=== PATIENT | female | born 1940 ===

== ENCOUNTER 2023-10-25 10:45 | Emergency (ER) | payer MEDICARE, SELFPAY ==
--- NOTE | ~2023-10-25 | CT_ITS ---
CT HEAD WITHOUT IV CONTRAST CT CERVICAL SPINE WITHOUT IV CONTRAST INDICATION: Fall. COMPARISON: None available. TECHNIQUE: Multidetector CT acquisitions of the head and cervical spine were obtained without IV contrast. Multiplanar reformats were acquired and utilized for image interpretation. This CT examination was performed using dose optimization techniques as appropriate, variously including the following: *Automated exposure control *Adjustment of mA and/or kV according to patient size (this includes techniques or standardized protocols for targeted exams where dose is matched to indication/reason for exam; i.e. 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 There is no intracranial hemorrhage, hydrocephalus, extra-axial surface collection, midline shift, or other herniation pattern. Piedra to white matter differentiation is diffusely maintained without evidence of an evolved acute territorial infarct. The basilar cisterns are preserved. No significant soft tissue abnormality. No acute osseous abnormality. Small fluid levels within the maxillary sinuses bilaterally. The remaining paranasal sinuses and the mastoid air cells are clear. CERVICAL SPINE: Nondiagnostic cervical spine CT due to motion artifact. This CT study cannot exclude cervical spine fractures given the degree of motion artifact. Consider a repeat study with sedation as clinically indicated if there is high clinical concern for acute cervical spine injury. CT/CT head/brain wo IV con IMPRESSION: - No acute intracranial abnormality. 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 Small fluid levels within the maxillary sinuses bilaterally. - Nondiagnostic cervical spine CT due to motion artifact. This CT study cannot exclude cervical spine fractures given the degree of motion artifact. Consider a repeat study with sedation as clinically indicated if there is high clinical concern for acute cervical spine injury.
--- NOTE | ~2023-10-25 | CT_ITS ---
EXAMINATION: CT CERVICAL SPINE WITHOUT CONTRAST CLINICAL INFORMATION: Fall. COMPARISON: None available. TECHNIQUE: 3 mm axial and reformatted 3 mm thin sagittal and coronal images of cervical spine were obtained without contrast. This CT examination was performed using dose optimization techniques as appropriate, variously including the following: *Automated exposure control *Adjustment of mA and/or kV according to patient size (this includes techniques or standardized protocols for targeted exams where dose is matched to indication/reason for exam; i.e. extremities or head) *Use of iterative reconstruction technique DLP: 234 mGy-cm FINDINGS: On sagittal reconstructed images there is normal cervical lordosis. The vertebral heights and alignment is normal. There is loss of C3-C4, C5-C6 and C6-C7 disc heights. There is mild spurring at the C1-C2 alignment. The craniovertebral junction is normal. No visible acute fracture, dislocation or subluxation seen. The prevertebral and paravertebral soft tissues are normal. The airway is widely patent. The lung apices are clear. Mild mucoperiosteal thickening right maxillary sinus is noted. Bilateral TM joints and visualized mandible is unremarkable. CT/CT cervical spine wo IV con IMPRESSION: No visible acute fracture, dislocation or subluxation seen in cervical spine. Degenerative disc changes C3-C4, C5-C6 and C6-C7 disc levels. No aggressive lytic or sclerotic process seen. Fleischner guidelines were followed.
--- NOTE | ~2023-10-25 | CT_ITS ---
CT HEAD WITHOUT IV CONTRAST CT CERVICAL SPINE WITHOUT IV CONTRAST INDICATION: Fall. COMPARISON: None available. TECHNIQUE: Multidetector CT acquisitions of the head and cervical spine were obtained without IV contrast. Multiplanar reformats were acquired and utilized for image interpretation. This CT examination was performed using dose optimization techniques as appropriate, variously including the following: *Automated exposure control *Adjustment of mA and/or kV according to patient size (this includes techniques or standardized protocols for targeted exams where dose is matched to indication/reason for exam; i.e. 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 There is no intracranial hemorrhage, hydrocephalus, extra-axial surface collection, midline shift, or other herniation pattern. [place]iedra to white matter differentiation is diffusely maintained without evidence of an evolved acute territorial infarct. The basilar cisterns are preserved. No significant soft tissue abnormality. No acute osseous abnormality. Small fluid levels within the maxillary sinuses bilaterally. The remaining paranasal sinuses and the mastoid air cells are clear. CERVICAL SPINE: Nondiagnostic cervical spine CT due to motion artifact. This CT study cannot exclude cervical spine fractures given the degree of motion artifact. Consider a repeat study with sedation as clinically indicated if there is high clinical concern for acute cervical spine injury. CT/CT cervical spine wo IV con IMPRESSION: - No acute intracranial abnormality. 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 Small fluid levels within the maxillary sinuses bilaterally. - Nondiagnostic cervical spine CT due to motion artifact. This CT study cannot exclude cervical spine fractures given the degree of motion artifact. Consider a repeat study with sedation as clinically indicated if there is high clinical concern for acute cervical spine injury.
--- NOTE | ~2023-10-25 | XR_ITS ---
EXAMINATION: XR CHEST CLINICAL INFORMATION: Fall COMPARISON: None available. TECHNIQUE: Frontal view of the chest was obtained. FINDINGS: Heart and mediastinum within normal limits. Low lung volumes with mild vessel crowding and mild atelectasis. Demineralization and degenerative changes. Calcification overlying the lateral left humeral head. No acute bony pathology. XR/XR chest 1V IMPRESSION: Low lung volumes with mild atelectasis.
--- NOTE | ~2023-10-25 | XR_ITS ---
EXAMINATION: XR PELVIS CLINICAL INFORMATION: Fall. COMPARISON: None available. TECHNIQUE: AP view of the pelvis. FINDINGS: No acute, displaced fracture. Healed right superior and inferior pubic rami fractures. Right femoral neck orthopedic screws across a healed right femoral neck fracture. No evidence of hardware complication. Moderate bilateral hip joint space narrowing with marginal osteophytes. No osseous erosion. No evidence of avascular necrosis. Phleboliths within the pelvis. XR/XR pelvis 1-2V IMPRESSION: 1. No acute fracture or dislocation. 2. Healed right superior and inferior pubic rami fractures. Right femoral neck orthopedic screws without evidence of hardware complication. 3. Moderate bilateral hip osteoarthritis.
[2023-10-25 11:15] VITALS: BP 108/80; BP 126/67; PULSE 72; PULSE 76; RESP 18; TEMP 37.2; O2SAT 95; O2SAT 98; BMI 19.2
--- NOTE | 2023-10-25 11:30 | ECG_ITS ---
Test Reason : fall Blood Pressure : / mmHG Vent. Rate : 069 BPM Atrial Rate : 069 BPM P-R Int : 154 ms QRS Dur : 086 ms QT Int : 420 ms P-R-T Axes : 039 042 053 degrees QTc Int : 450 ms Normal sinus rhythm Normal ECG No previous ECGs available Referred By: Aliza Ac Electronically Signed By:Cristofer Kwno
--- NOTE | 2023-10-25 11:36 | ED.FALL ---
HPI - Fall General Chief Complaint: Fall Stated Complaint: UNWIT FALL,?LOC?HS,-COLLAR,-THINNERS,INC CONFUSION Time Seen by Provider: 10/25/23 11:10 History of Present Illness HPI Narrative: Patient is an 83-year-old female from a [facility] facility. Patient was in a wheelchair subsequently found lying on her side unsure what exactly happened. Patient has no complaints. She has not on any blood thinners. Related Data Home Medications Medication Instructions Recorded Confirmed amantadine HCl 100 mg capsule 100 mg PO BID 10/25/23 10/25/23 benztropine 0.5 mg tablet 0.5 mg PO BID 10/25/23 10/25/23 divalproex 250 mg tablet,delayed 250 mg PO DAILY 10/25/23 10/25/23 release (Depakote) divalproex 250 mg tablet,delayed 500 mg PO BEDTIME 10/25/23 10/25/23 release (Depakote) divalproex 250 mg tablet,delayed 500 mg PO BID 10/25/23 10/25/23 release (Depakote) fluoxetine 20 mg capsule (Prozac) 20 mg PO DAILY 10/25/23 10/25/23 levothyroxine 75 mcg tablet 75 mcg PO DAILY 10/25/23 10/25/23 (Synthroid) olanzapine 2.5 mg tablet 2.5 mg PO BEDTIME 10/25/23 10/25/23 olanzapine 2.5 mg tablet 2.5 mg PO DAILY 10/25/23 10/25/23 trazodone 50 mg tablet 50 mg PO BEDTIME PRN Insomnia 10/25/23 10/25/23 Allergies Allergy/AdvReac Type Severity Reaction Status Date / Time No Known Allergies Allergy Verified 10/25/23 11:35 Review of Systems Review of Systems: Elderly female fall unable to obtain review of systems secondary to patient's condition PMFSH Past Medical History Attestation statement: The following information was validated with the patient. Social History Social History Smoked in Last 30 Days: No Use of substances other than those prescribed or required for medical reasons: No Advance Directives: No Advance Directives Information Provided: No Physical Exam Vital Signs: Vital Signs: Last Vital Signs Temp 98.9 F 10/25/23 11:15 Pulse 87 10/25/23 14:51 Resp 16 10/25/23 14:51 BP 132/66 10/25/23 14:51 Pulse Ox 97 10/25/23 14:51 O2 Del Method Room Air 10/25/23 14:51 BMI result Body Mass Index 19.2 Appearance: Alert. Oriented X3. No acute distress. Eyes: Pupils equal, round and reactive to light. ENT: Pharynx normal. Neck: Normal inspection. Neck supple. No lymph nodes noted. No crepitus CVS: Normal heart rate and rhythm. Pulses normal. Normal S1 and S2 Respiratory: No respiratory distress. Breath sounds normal. No Wheezing. No rales Abdomen: Soft and nontender. No rigidity. No distention. good BS x4 Skin: Skin warm and dry. Normal skin color. Normal skin turgor. Extremities: No lower extremity edema. Neurovascular intact to all extremities. No Lacerations. No Rash Neuro: Oriented X 3. No motor deficit. No sensory deficit. Moving all extermities. No slurred speech Medications Administered Discontinued Medications Generic Name Dose Route Start Last Admin Trade Name Freq PRN Reason Stop Dose Admin Midazolam HCl 1 mg 10/25/23 14:45 10/25/23 14:50 Midazolam Hcl/Pf 2 Mg/2 Ml Vial IM 10/25/23 14:46 1 mg ONCE ONE Administration Medical Decision Making Medical Decision Making [facility] Narrative: Patient is status post unwitnessed fall from a wheelchair at a [facility] facility. CT scan of the head was done. It was grossly negative for any acute evidence of bleeding. Patient's hemoglobin is normal no evidence for anemia. Urine was obtained there is no evidence for infection. An EKG was done and showed a sinus pattern heart rate is 60 AR QRS QTC within normal limits is no acute ST segment elevation. Patient's x-ray of the chest and x-ray of the pelvis was done. The both grossly negative for any acute evidence of fracture. Moving all extremities well. Had a discussion with patient's son [id number] Cb. Feel comfortable with discharge at the C-spine CT is negative. Patient's C-spine CT came back grossly negative. I reviewed radiology's report. Will discharge patient home. In stable condition Differential Diagnosis Differential Diagnoses: The differential diagnosis associated with the presentation includes Fracture, infection, Admission/Observation Consideration of admission/observation: Escalation of care including admission/observation considered Lab Data MDM Lab Attestation statement: I reviewed the patient's lab results. 10/25/23 12:02 10/25/23 12:36 Labs: Lab Results 10/25/23 10/25/23 10/25/23 Range/Units 12:02 12:36 12:37 WBC 9.5 (4.8-10.8) X10*3/uL RBC 3.61 L (4.20-5.50) X10*6/uL Hgb 12.1 (12.0-16.0) g/dl Hct 35.7 L (37.0-47.0) % MCV 98.9 H (80.0-98.0) fL MCH 33.5 H (27.0-33.0) pg MCHC 33.9 (31.0-35.0) g/dl RDW 14.8 (11.0-16.0) % Plt Count 148 L (160-400) X10*3/uL MPV 11.1 (9.4-12.3) fL Immature Gran % (Auto) 1.7 H (0.0-0.4) % Neut % (Auto) 76.8 H (45-73) % Lymph % (Auto) 14.1 L (20-40) % Mccreary % (Auto) 6.7 (2-11) % Eos % (Auto) 0.1 (0-4) % Baso % (Auto) 0.6 (0-2) % Lymph # (Auto) 1.3 (1.2-4.9) X10*3/uL Mccreary # (Auto) 0.6 (0.1-1.2) X10*3/uL Eos # (Auto) 0.0 (0.0-0.4) X10*3/uL Baso # (Auto) 0.1 (0.0-0.2) X10*3/uL Abs Immat Gran (auto) 0.16 H (0.00-0.03) X10*3/uL Absolute Neuts (auto) 7.3 (2.0-8.3) x10*3/uL Absolute Nucleated RBC 0.000 (0.0-0.012) X10*3/uL Nucleated RBC % (auto) 0.0 (0.0-0.2) /100WBC Hold Purple Top Cancelled SEE NOTE Sodium 134 L (135-145) mmol/L Potassium 4.2 (3.3-5.1) mmol/L Chloride 100 (96-108) mmol/L Carbon Dioxide 28 (22-29) mmol/L Anion Gap 10 L (12-20) BUN 18 H (9-16) mg/dL Creatinine 0.73 (0.5-1.4) mg/dL Estim Creat Clear Calc 48.8 Estimated GFR > 60 Random Glucose 78 (60-115) mg/dL Calcium 8.4 (8.4-10.2) mg/dL Urine Color Urine Appearance Urine pH (5.0-9.0) Ur Specific [place] (1.005-1.025) Urine Protein (Neg-Trace) mg/dL Urine Glucose (UA) (Negative) mg/dL Urine Ketones (Negative) mg/dL Urine Blood (Negative) Urine Nitrite (Negative) Ur Leukocyte Esterase (Negative) Urine RBC (0-2) /HPF Urine WBC (0-5) /HPF Ur Squamous Epith Cells (0-2) /HPF Urine Bacteria (None Seen) Hyaline Casts (0-2) /LPF 10/25/23 Range/Units 14:38 WBC (4.8-10.8) X10*3/uL RBC (4.20-5.50) X10*6/uL Hgb (12.0-16.0) g/dl Hct (37.0-47.0) % MCV (80.0-98.0) fL MCH (27.0-33.0) pg MCHC (31.0-35.0) g/dl RDW (11.0-16.0) % Plt Count (160-400) X10*3/uL MPV (9.4-12.3) fL Immature Gran % (Auto) (0.0-0.4) % Neut % (Auto) (45-73) % Lymph % (Auto) (20-40) % [place] % (Auto) (2-11) % Eos % (Auto) (0-4) % Baso % (Auto) (0-2) % Lymph # (Auto) (1.2-4.9) X10*3/uL [place] # (Auto) (0.1-1.2) X10*3/uL Eos # (Auto) (0.0-0.4) X10*3/uL Baso # (Auto) (0.0-0.2) X10*3/uL Abs Immat Gran (auto) (0.00-0.03) X10*3/uL Absolute Neuts (auto) (2.0-8.3) x10*3/uL Absolute Nucleated RBC (0.0-0.012) X10*3/uL Nucleated RBC % (auto) (0.0-0.2) /100WBC Hold Purple Top Sodium (135-145) mmol/L Potassium (3.3-5.1) mmol/L Chloride (96-108) mmol/L Carbon Dioxide (22-29) mmol/L Anion Gap (12-20) BUN (9-16) mg/dL Creatinine (0.5-1.4) mg/dL Estim Creat Clear Calc Estimated GFR Random Glucose (60-115) mg/dL Calcium (8.4-10.2) mg/dL Urine Color Yellow Urine Appearance Clear Urine pH 7.5 (5.0-9.0) Ur Specific [place] 1.015 (1.005-1.025) Urine Protein Negative (Neg-Trace) mg/dL Urine Glucose (UA) Negative (Negative) mg/dL Urine Ketones Trace (Negative) mg/dL Urine Blood Negative (Negative) Urine Nitrite Negative (Negative) Ur Leukocyte Esterase Trace H (Negative) Urine RBC 0-2 (0-2) /HPF Urine WBC 0-5 (0-5) /HPF Ur Squamous Epith Cells 0-2 (0-2) /HPF Urine Bacteria None Seen (None Seen) Hyaline Casts 0-2 (0-2) /LPF Independent Interpretation I performed an independent interpretation of an: EKG (Sinus heart rate is 60 AR QRS QTC within normal limits is no acute ST segment elevation noted.), Plain X-Ray (Chest x-ray and pelvis x-ray were both grossly negative for any acute evidence of fracture.) and CT Scan (Review CT scan of the head which was grossly negative for bleed or fracture) Radiology Impression Discussion of test interpretation with radiology: I have reviewed the radiologist's reading. Independent Historian Clinical information obtained from an independent historian. History obtained from or confirmed by: EMS long-term staff Discharge Plan Discharge Clinical Impression: Head injury, Fall Patient Disposition: Home, Self-Care Instructions: Fall Prevention for Older Adults (ED), Head Injury (ED), Fall Prevention (ED) Prescriptions: No Action benztropine 0.5 mg Tablet 0.5 mg PO BID fluoxetine [Prozac] 20 mg Capsule 20 mg PO DAILY divalproex [Depakote] 250 mg tablet,delayed release (DR/EC) 500 mg PO BEDTIME olanzapine 2.5 mg Tablet 2.5 mg PO BEDTIME olanzapine 2.5 mg Tablet 2.5 mg PO DAILY divalproex [Depakote] 250 mg tablet,delayed release (DR/EC) 250 mg PO DAILY trazodone 50 mg tablet 50 mg PO BEDTIME PRN (Reason: Insomnia) divalproex [Depakote] 250 mg tablet,delayed release (DR/EC) 500 mg PO BID amantadine HCl 100 mg Capsule 100 mg PO BID levothyroxine [Synthroid] 75 mcg tablet 75 mcg PO DAILY Referrals: Physician,Unknown J [Primary Care Provider] - 10/27/23
--- NOTE | 2023-10-25 12:02 | PC.NURSE ---
labs obtained/sent to lab at this time.
[2023-10-25 12:09] LABS: MANUAL DIFF FLAG NO
[2023-10-25 12:17] LABS: Basophils Absolute Auto 0.1 X10*3/uL (0.0-0.2); Basophils Percent Auto 0.6 % (0-2); Eosinophils Percent Auto 0.1 % (0-4); Hematocrit 35.7 % (37.0-47.0); Hemoglobin 12.1 g/dl (12.0-16.0); Imm Gran Abs Auto 0.16 X10*3/uL (0.00-0.03); Imm Gran Pct Auto 1.7 % (0.0-0.4); Lymphocytes Absolute Auto 1.3 X10*3/uL (1.2-4.9); Lymphocytes Percent Auto 14.1 % (20-40); Mean Corpuscular HGB Conc 33.9 g/dl (31.0-35.0); Mean Corpuscular Hemoglobin 33.5 pg (27.0-33.0); Mean Corpuscular Volume 98.9 fL (80.0-98.0); Mean Platelet Volume 11.1 fL (9.4-12.3); Monocytes Absolute Auto 0.6 X10*3/uL (0.1-1.2); Monocytes Percent Auto 6.7 % (2-11); Neutrophils Absolute Auto 7.3 x10*3/uL (2.0-8.3); Neutrophils Percent Auto 76.8 % (45-73); Platelet Count 148 X10*3/uL (160-400); Red Blood Count 3.61 X10*6/uL (4.20-5.50); Red Cell Distribution Width 14.8 % (11.0-16.0); White Blood Count 9.5 X10*3/uL (4.8-10.8)
[2023-10-25 13:02] LABS: Anion Gap 10 (12-20)
[2023-10-25 13:04] LABS: Blood Urea Nitrogen 18 mg/dL (9-16); Calcium 8.4 mg/dL (8.4-10.2); Carbon Dioxide 28 mmol/L (22-29); Chloride 100 mmol/L (96-108); Creatinine Clr Calc Pharmacy 48.8; Estimated Glomerular Filt Rate > 60; Glucose Random 78 mg/dL (60-115); Potassium 4.2 mmol/L (3.3-5.1); Sodium 134 mmol/L (135-145)
--- NOTE | 2023-10-25 13:49 | PC.NURSE ---
Drew junior java developer from [facility] ([phone]) in [place] called about status update on pt.
[2023-10-25 14:48] LABS: Appearance Urine Clear; Color Urine Yellow; Glucose Urine UA Negative (Negative); Leukocyte Esterase Urine Trace (Negative); Nitrite Urine Negative (Negative); PH 7.5 (5.0-9.0); Specific Gravity - Urine 1.015 (1.005-1.025); UMIC TRIGGER UACC YES; Urine Blood Negative (Negative); Urine Ketones Trace mg/dL (Negative); Urine Protein Negative (Neg-Trace)
[2023-10-25 14:50] LABS: Bacteria Urine None Seen (None Seen); Hyaline Casts Urine 0-2 /LPF (0-2); RBC Urine 0-2 /HPF (0-2); Squamous Epithelial Cell Urine 0-2 /HPF (0-2); WBC Urine 0-5 /HPF (0-5)
[2023-10-25] MEDS: Midazolam HCl/PF 2 MG/2 ML VIAL 1 MG IM (14:50)
[2023-10-25 14:51] VITALS: BP 132/66; PULSE 87; RESP 16; O2SAT 97
--- NOTE | 2023-10-25 14:52 | PC.NURSE ---
pt increasingly agitated/unable to remain still during CT scan. medication administered per provider order. effectiveness pending. will reattempt to go to CT.
[2023-10-25 17:12] VITALS: BP 134/76; PULSE 67; RESP 18; O2SAT 98
--- NOTE | 2023-10-25 17:14 | PC.NURSE ---
report given to RN at [facility]
== END 2023-10-25 18:34 | disposition home or self-care (01) ==
PROVIDERS: Emergency Provider Emergency Medicine Emergency Medical Services
DX: S09.90XA Unspecified injury of head, initial encounter (principal); W05.0XXA Fall from non-moving wheelchair, initial encounter; Y93.9 Activity, unspecified; Y92.129 Unspecified place in nursing home as the place of occurrence of the external cause; Y99.9 Unspecified external cause status; Z79.899 Other long term (current) drug therapy
CPT/HCPCS: 36415; 70450; 71045; 72125; 72170; 80048; 81001; 85025; 93005; 96372; 99284; 99285; J2250

== ENCOUNTER → 2023-10-25 11:30 | Outpatient (BNV) | payer MEDICARE, SELFPAY | PROVIDERS: Emergency Provider Emergency Medicine Emergency Medical Services; Visit Provider Internal Medicine Cardiovascular Disease | DX: R26.81 Unsteadiness on feet (principal) | CPT/HCPCS: 93010 ==